=== PATIENT | male | born 1970 | race Caucasian/White ===

== ENCOUNTER → 2017-06-14 | Outpatient (CLI) | payer MEDICAID, OTHER ==
[2017-06-14 12:17] LABS: BASO # 0.1 K/mm3 (0.0-0.2); BASO % 0.8 % (0.0-1.0); EOS # 0.2 K/mm3 (0.0-0.50); EOS % 2.6 % (0.0-3.0); LYMPH % 27.6 % (24.0-44.0); MEAN CORPUSCULAR HEMOGLOBIN 31.2 pg (27.0-33.0); MEAN CORPUSCULAR HGB CONC 34.9 g/dl (32.0-36.5); MEAN CORPUSCULAR VOLUME 89.6 fl (80.0-96.0); MONO # 0.3 K/mm3 (0.0-0.8); MONO % 4.6 % (0.0-5.0); NEUTROPHILS # 4.6 K/mm3 (1.8-7.7); NEUTROPHILS % 62.3 % (36.0-66.0); RED CELL DISTRIBUTION WIDTH 13.1 % (11.5-14.5); WHITE BLOOD COUNT 7.3 K/mm3 (4.0-10.0)
[2017-06-14 13:07] LABS: ALBUMIN 3.8 GM/DL (3.2-5.2); ALBUMIN/GLOBULIN RATIO 1.15 (1.00-1.93); ALKALINE PHOSPHATASE 110 U/L (45-117); ALT/SGPT 40 U/L (12-78); ANION GAP 7 MEQ/L (8-16); AST/SGOT 19 U/L (15-37); BILIRUBIN,TOTAL 0.5 MG/DL (0.2-1.0); BLOOD UREA NITROGEN 17 MG/DL (7-18); CALCIUM LEVEL 8.8 MG/DL (8.5-10.1); CARBON DIOXIDE LEVEL 31 MEQ/L (21-32); CHLORIDE LEVEL 104 MEQ/L (98-107); CHOLESTEROL LEVEL 173 MG/DL (<200); CREATININE FOR GFR 1.26 MG/DL (0.70-1.30); GLOMERULAR FILTRATION RATE > 60.0 (>60); GLUCOSE, FASTING 98 MG/DL (70-105); POTASSIUM SERUM 3.9 MEQ/L (3.5-5.1); SODIUM LEVEL 142 MEQ/L (136-145); TOTAL PROTEIN 7.1 GM/DL (6.4-8.2); TRIGLYCERIDES LEVEL 327 MG/DL (<150)
--- NOTE | 2017-06-14 16:52 | ECGEPIP ---
Stationary ECG Study [facility] Test Date: 2017-06-14 Pat Name: COLTEN JEAN Department: Room: - Gender: M Capacity Planning Analyst: : 1970 Requested By: Renee Merritt Order Number: [id number] Reading MD: Bryce Oneill Measurements Intervals [place] Rate: 67 P: 42 NM: 204 QRS: -12 QRSD: 124 T: 0 QT: 377 QTc: 399 Interpretive Statements Normal sinus rhythm Leftward axis Consider prior IWMI No significant change when compared to prior tracing of 03/28/2015 Electronically Signed On 06-14-2017 16:52:26 EDT by Bryce Oneill
== END ==
LOC: M LAB 11:13
PROVIDERS: ATTEND Physician Assistant Medical
DX: I10 Essential (primary) hypertension (principal)

== ENCOUNTER → 2017-06-14 | Outpatient (CLI) | payer MEDICAID, OTHER | LOC: M LAB 11:18 | DX: Z13.9 Encounter for screening, unspecified (principal) ==

== ENCOUNTER → 2017-09-17 | Outpatient (CLI) | payer OTHER ==
[2017-09-17 17:09] LABS: ALBUMIN/GLOBULIN RATIO 1.18 (1.00-1.93); ALKALINE PHOSPHATASE 88 U/L (45-117); ALT/SGPT 39 U/L (12-78); ANION GAP 7 MEQ/L (8-16); AST/SGOT 27 U/L (7-37); BILIRUBIN,TOTAL 0.6 MG/DL (0.2-1.0); BLOOD UREA NITROGEN 17 MG/DL (7-18); CALCIUM LEVEL 9.1 MG/DL (8.5-10.1); CARBON DIOXIDE LEVEL 33 MEQ/L (21-32); CHLORIDE LEVEL 105 MEQ/L (98-107); CHOLESTEROL LEVEL 186 MG/DL (<200); CREATININE FOR GFR 1.21 MG/DL (0.70-1.30); GLOMERULAR FILTRATION RATE > 60.0 (>60); GLUCOSE, FASTING 108 MG/DL (70-105); POTASSIUM SERUM 4.4 MEQ/L (3.5-5.1); SODIUM LEVEL 145 MEQ/L (136-145); TOTAL PROTEIN 7.4 GM/DL (6.4-8.2); TRIGLYCERIDES LEVEL 205 MG/DL (<150)
== END ==
LOC: M WUC 10:59
PROVIDERS: ATTEND Physician Assistant Medical
DX: I10 Essential (primary) hypertension (principal)

== ENCOUNTER → 2019-04-17 | Outpatient (REF) | payer OTHER | LOC: M LAB REF 12:52 | PROVIDERS: ATTEND Nurse Practitioner Family | DX: J02.9 Acute pharyngitis, unspecified (principal) ==

== ENCOUNTER → 2019-06-30 | Outpatient (REF) ==
--- NOTE | 2019-07-01 05:38 | REP ---
Clinical: Left hand pain. Technique: AP, lateral, bilateral oblique views left hand a . Findings: The osseous structures and joint spaces are intact and essentially normal for age. No overt osteoarthritic degenerative changes are appreciated. There is no evidence for acute fracture or dislocation. Surrounding soft tissues are unremarkable. No subcutaneous emphysema or radiodense foreign body. Impression: Age-appropriate left hand series . Electronically Signed by Don Grajeda MD 07/01/2019 05:29 A
== END ==
LOC: M SMT 10:49
PROVIDERS: ATTEND Internal Medicine
DX: Z02.71 Encounter for disability determination (principal)

== ENCOUNTER → 2019-09-23 | Outpatient (REF) | payer OTHER ==
[2019-09-23 12:09] LABS: C REACTIVE PROTEIN QUANTITATIV 0.68 MG/DL (0.00-0.30); RHEUMATOID FACTOR QUANT < 10.0 IU/ML (<15.0); URIC ACID 5.7 MG/DL (3.5-7.2)
[2019-09-24 14:07] LABS: ANTINUCLEAR ANTIBODIES DIRECT Negative (Negative)
== END ==
LOC: M LABDRAW1 10:26
PROVIDERS: ATTEND Orthopaedic Surgery
DX: M25.539 Pain in unspecified wrist (principal)

== ENCOUNTER → 2020-11-13 | Outpatient (CLI) | payer OTHER ==
--- NOTE | 2020-11-14 15:42 | SLEEPCENT ---
NOCTURNAL POLYSOMNOGRAPHY DATE: 11/13/2020 ORDERED BY: MINE Lucia Nocturnal polysomnography was performed for evaluation of sleep physiology in this patient with excessive somnolence and nonrestorative sleep who has significant comorbidities of hypertension, obesity, and gastroesophageal reflux. 7 hours and 54 minutes of data were reviewed. There were 311 minutes of sleep identified. Sleep latency was prolonged at 88 minutes. REM latency was likewise prolonged at 242.5 minutes. Sleep architecture showed fragmentation and poor progression. There was only one REM cycle about 3:30 a.m., and the overall sleep efficiency was 69.2%. The patient's electrocardiogram showed what appeared to be a sinus rhythm at baseline with an average heart rate of 60 beats per minute; rate range 50 to 80. EEG showed normal waveforms for wake and sleep. There were 259 respiratory events identified of 10 seconds in duration or greater for an apnea-hypopnea index of 50. The events were not exclusive to sleep stage nor body posture. Arousals from respiratory events occurred 18.7 times per hour and oxygen desaturations were seen into the low 80s. There was also some activity noted in the limb leads, but limb movements arousals were few at 2.7 per hour. IMPRESSION: Severe obstructive sleep apnea syndrome (G47.33), apnea-hypopnea index 50. RECOMMENDATION: The patient should be encouraged to [facility]. In the interim, alcohol and sedative avoidance should be practiced and caution exercised during the operation of motor vehicles.
== END ==
LOC: M SLEEP 20:00
PROVIDERS: ATTEND Nurse Practitioner Family
DX: G47.33 Obstructive sleep apnea (adult) (pediatric) (principal); R06.83 Snoring

== ENCOUNTER 2020-11-28 12:08 | Emergency (ER) | payer OTHER ==
[~2020-11-28] VITALS: Ht 177.8 cm; Wt 137.7 kg
[2020-11-28] MEDS ORDERED: LOSA25TA14 PO (12:21)
[2020-11-28] MEDS ORDERED: SERTRALINE (12:22)
[2020-11-28] MEDS ORDERED: BUPR150T4 (12:22)
--- OUTSIDE RECORDS SUMMARY | 2020-11-28 12:41 | CCD ---
Author Author [facility] Organization [facility] Address Unknown Phone Unavailable Care Team Providers Care Sheep Shearer Name Role Phone Pleskach, Adelaida POWER SAW MECHANIC Unavailable Unavailable Pleskach, Adelaida POWER SAW MECHANIC Unavailable Unavailable Pleskach, Adelaida POWER SAW MECHANIC Unavailable Unavailable Pleskach, Adelaida POWER SAW MECHANIC Unavailable Unavailable Pleskach, Adelaida POWER SAW MECHANIC Unavailable Unavailable Pleskach, Adelaida POWER SAW MECHANIC Unavailable Unavailable Pleskach, Adelaida POWER SAW MECHANIC Unavailable Unavailable Pleskach, Adelaida POWER SAW MECHANIC Unavailable Unavailable Pleskach, Adelaida POWER SAW MECHANIC Unavailable Unavailable Pleskach, Adelaida POWER SAW MECHANIC Unavailable Unavailable Pleskach, Adelaida POWER SAW MECHANIC Unavailable Unavailable Pleskach, Adelaida POWER SAW MECHANIC Unavailable Unavailable Pleskach, Adelaida POWER SAW MECHANIC Unavailable Unavailable Pleskach, Adelaida POWER SAW MECHANIC Unavailable Unavailable Pleskach, Adelaida POWER SAW MECHANIC Unavailable Unavailable Pleskach, Adelaida POWER SAW MECHANIC Unavailable Unavailable Pleskach, Adelaida POWER SAW MECHANIC Unavailable Unavailable Pleskach, Adelaida POWER SAW MECHANIC Unavailable Unavailable Pleskach, Adelaida POWER SAW MECHANIC Unavailable Unavailable Pleskach, Adelaida POWER SAW MECHANIC Unavailable Unavailable Pleskach, Adelaida POWER SAW MECHANIC Unavailable Unavailable Pleskach, Adelaida POWER SAW MECHANIC Unavailable Unavailable Pleskach, Adelaida POWER SAW MECHANIC Unavailable Unavailable Pleskach, Adelaida POWER SAW MECHANIC Unavailable Unavailable Pleskach, Adelaida POWER SAW MECHANIC Unavailable Unavailable Pleskach, Adelaida POWER SAW MECHANIC Unavailable Unavailable Pleskach, Adelaida POWER SAW MECHANIC Unavailable Unavailable Pleskach, Adelaida POWER SAW MECHANIC Unavailable Unavailable Pleskach, Adelaida POWER SAW MECHANIC Unavailable Unavailable Pleskach, Adelaida POWER SAW MECHANIC Unavailable Unavailable Re-disclosure Warning The records that you are about to access may contain information from federally-assisted alcohol or drug abuse programs. If such information is present, then the following federally mandated warning applies: This information has been disclosed to you from records protected by federal confidentiality rules (42 CFR part 2). The federal rules prohibit you from making any further disclosure of this information unless further disclosure is expressly permitted by the written consent of the person to whom it pertains or as otherwise permitted by 42 CFR part 2. A general authorization for the release of medical or other information is NOT sufficient for this purpose. The Federal rules restrict any use of the information to criminally investigate or prosecute any alcohol or drug abuse patient.The records that you are about to access may contain highly sensitive health information, the redisclosure of which is protected by Article 27-F of the [facility] law. If you continue you may have access to information: Regarding HIV / AIDS; Provided by facilities licensed or operated by the [facility]; or Provided by the [facility] for People With Developmental Disabilities. If such information is present, then the following [facility] mandated warning applies: This information has been disclosed to you from confidential records which are protected by state law. State law prohibits you from making any further disclosure of this information without the specific written consent of the person to whom it pertains, or as otherwise permitted by law. Any unauthorized further disclosure in violation of state law may result in a fine or chcf sentence or both. A general authorization for the release of medical or other information is NOT sufficient authorization for further disc losure. Encounters Encounter Providers Location Date Indications Data Source(s ) Outpatient Attender: Adelaida Torres [facility] Main Office 07/06/2020 0 1:45:00 PM EDT [facility] Outpatient Attender: Adelaida Torres [facility] Main Office 10/27/2019 1 2:30:00 PM EST [facility] Immunizations Vaccine Date Status Description Data Source(s) New in 2012. IIV4 07/06/2020 02:14:00 PM EDT completed [facility] Insurance Providers Payer name Policy type / Coverage type Policy ID Covered alliance party ID Covered alliance party's relationship to schwab Policy Schwab Plan Information [facility] [id number] SP [id number] MVP MCDHMO [id number] SP [id number] 'S ADMINISTRATION [id number] SP [id number] [facility] O [id number] S [id number] [facility] Healthcare F pending SELF pendi ng [facility] Health Care Commercial [id number] Self [id number] [facility] MEDICAID HMO -O/P [id number] 18 [id number] [facility] HEALTH CARE [id number] SP [id number] [facility] HEALTH CARE [id number] SP [id number] MEDICAID [id number] SP [id number] [facility] Care Commercial Self Ghi Commercial Self Managed Care [place] P [id number] S [id number] Medicaid S [id number] RU [id number] SP [id number] MEDICAID M [id number] S [id number] [place] O [id number] S [id number] [facility]E O [id number] S [id number] AIG CS WORKER COMP [id number] SP [id number] [facility] P [id number] S [id number] [facility] P UNAVAILABLE S UNAVAILABLE [id number] Social History Code Duration Value Status Description Data Source(s ) Smoking 07/06/2020 12:00:00 AM EDT Patient has never smoked co mpleted Patient has never smoked [facility] Vital Signs ID Date Data Source UNK Name Value Range Interpretation Code Description Data Source(s) Body mass index (BMI) [Ratio] 41.2 kg/m2 41.2 k g/m2 [facility] [place] body weight 166 [lb_av] 166 [lb_av] DYLANEN T ([facility] Oxygen saturation in Arterial blood by Pulse oximetry 98 % 98 % [facility] Body weight 287.19 [lb_av] 287.19 [lb_av] DYLANEN T ([facility] Body height 70 [in_i] 70 [in_i] [facility] 5'10" Respiratory rate 12 /min 12 /min [facility] ( [facility] Body temperature 97.5 [degF] 97.5 [degF] [facility] Heart rate 60 /min 60 /min [facility] Diastolic blood pressure 69 mm[Hg] 69 mm[Hg] [facility] Systolic blood pressure 120 mm[Hg] 120 mm[Hg] M EDENT ([facility] Body mass index (BMI) [Ratio] 39.5 kg/m2 39.5 k g/m2 [facility] [place] body weight 166 [lb_av] 166 [lb_av] MEDEN T ([facility] Oxygen saturation in Arterial blood by Pulse oximetry 94 % 94 % [facility] Body weight 275.38 [lb_av] 275.38 [lb_av] MEDEN T ([facility] Body height 70 [in_i] 70 [in_i] [facility] 5'10" Respiratory rate 16 /min 16 /min [facility] ( [facility] Body temperature 98.6 [degF] 98.6 [degF] [facility] Heart rate 76 /min 76 /min [facility] Diastolic blood pressure 67 mm[Hg] 67 mm[Hg] [facility] Systolic blood pressure 112 mm[Hg] 112 mm[Hg] Zoya BERMEO ([facility]
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
--- OUTSIDE RECORDS SUMMARY | 2020-11-28 13:20 | CCD ---
Author Author [facility] Organization [facility] Address Unknown Phone Unavailable Care Team Providers Care Framing Specialist Name Role Phone Pleskach, Adelaida FURNACE COOLER Unavailable Unavailable Pleskach, Adelaida FURNACE COOLER Unavailable Unavailable Pleskach, Adelaida FURNACE COOLER Unavailable Unavailable Pleskach, Adelaida FURNACE COOLER Unavailable Unavailable Pleskach, Adelaida FURNACE COOLER Unavailable Unavailable Pleskach, Adelaida FURNACE COOLER Unavailable Unavailable Pleskach, Adelaida FURNACE COOLER Unavailable Unavailable Pleskach, Adelaida FURNACE COOLER Unavailable Unavailable Pleskach, Adelaida FURNACE COOLER Unavailable Unavailable Pleskach, Adelaida FURNACE COOLER Unavailable Unavailable Pleskach, Adelaida FURNACE COOLER Unavailable Unavailable Pleskach, Adelaida FURNACE COOLER Unavailable Unavailable Pleskach, Adelaida FURNACE COOLER Unavailable Unavailable Pleskach, Aedlaida FURNACE COOLER Unavailable Unavailable Pleskach, Adelaida FURNACE COOLER Unavailable Unavailable Pleskach, Adelaida FURNACE COOLER Unavailable Unavailable Pleskach, Adelaida FURNACE COOLER Unavailable Unavailable Pleskach, Adelaida FURNACE COOLER Unavailable Unavailable Pleskach, Adelaida FURNACE COOLER Unavailable Unavailable Pleskach, Adelaida FURNACE COOLER Unavailable Unavailable Pleskach, Adelaida FURNACE COOLER Unavailable Unavailable Pleskach, Adelaida FURNACE COOLER Unavailable Unavailable Pleskach, Adelaida FURNACE COOLER Unavailable Unavailable Pleskach, Adelaida FURNACE COOLER Unavailable Unavailable Pleskach, Adelaida FURNACE COOLER Unavailable Unavailable Pleskach, Adelaida FURNACE COOLER Unavailable Unavailable Pleskach, Adelaida FURNACE COOLER Unavailable Unavailable Pleskach, Adelaida FURNACE COOLER Unavailable Unavailable Pleskach, Adelaida FURNACE COOLER Unavailable Unavailable Pleskach, Adelaida FURNACE COOLER Unavailable Unavailable Re-disclosure Warning The records that [...] is protected by Article 27-F of the [facility] Public Health law. If you continue you may have access to information: Regarding HIV / AIDS; Provided by facilities licensed or operated by the [facility] Office of Mental Health; or Provided by the [facility] Office for People With Developmental Disabilities. If such information is present, then the following [facility] mandated warning applies: This information has been [...] law may result in a fine or long-term sentence or both. A general authorization for the release of medical or other information is NOT sufficient authorization for further disc losure. Encounters Encounter Providers Location Date Indications Data Source(s ) Outpatient Attender: Adelaida Torres [facility] Main Office 07/06/2020 0 1:45:00 PM EDT [facility] Outpatient Attender: Adelaida Torres [facility] Main Office 10/27/2019 1 2:30:00 PM EST [facility] Immunizations Vaccine Date Status Description Data Source(s) New in 2012. IIV4 07/06/2020 02:14:00 PM EDT completed [facility] Insurance Providers Payer name Policy type / Coverage type Policy ID Covered libertarian ID Covered libertarian's relationship to schwab Policy Schwab Plan Information [employer] [facility] NO FAULT [id number] SP [id number] 'S ADMINISTRATION [id number] SP [id number] [facility] [id number] SP [id number] MVP MCDHMO [id number] SP [id number] [facility] O [id number] S [id number] [facility] Healthcare F pending SELF pendi ng [facility] Health Care Commercial [id number] Self [id number] MVP MEDICAID HMO -O/P [id number] 18 [id number] [facility] HEALTH CARE [id number] SP [id number] [facility] HEALTH CARE [id number] SP [id number] MEDICAID [id number] SP [id number] [place] Care Commercial Self Ghi Commercial Self Managed Care [place] P [id number] S [id number] Medicaid S [id number] S [id number] [place] [id number] SP [id number] MEDICAID M [id number] [place] O [id number] S [id number] [facility]/136E O [id number] S [id number] AIG CS WORKER COMP [id number] SP [id number] [facility] P [id number] S [id number] [facility] P UNAVAILABLE S UNAVAILABLE [id number] Social History Code Duration Value Status Description Data Source(s ) Smoking 07/06/2020 12:00:00 AM EDT Patient has never smoked co mpleted Patient has never smoked [facility] Vital Signs ID Date Data Source UNK Name Value Range Interpretation Code Description Data Source(s) Body mass index (BMI) [Ratio] 41.2 kg/m2 41.2 k g/m2 [facility] [place] body weight 166 [lb_av] 166 [lb_av] MEDEN T ([facility] Oxygen saturation in Arterial blood by Pulse oximetry 98 % 98 % [facility] Body weight 287.19 [lb_av] 287.19 [lb_av] MED[facility] T ([facility] [...] k g/m2 [facility] [place] body weight 166 [lb_av] 166 [lb_av] MEDEN [...] Diastolic blood pressure 67 mm[Hg] 67 mm[Hg] MICHELL ([facility] Systolic blood pressure 112 mm[Hg] 112 mm[Hg] Zoya BERMEO ([facility]
[2020-11-28 13:31] LABS: BASO # 0.1 10^3/uL (0.0-0.2); BASO % 0.8 % (0.0-1.0); EOS # 0.2 10^3/uL (0.0-0.5); EOS % 2.7 % (0.0-3.0); HEMATOCRIT 45.3 % (42.0-52.0); HEMOGLOBIN 14.7 g/dl (13.5-17.5); LYMPH # 1.8 10^3/uL (1.5-5.0); LYMPH % 21.3 % (24.0-44.0); MEAN CORPUSCULAR HEMOGLOBIN 29.1 pg (27.0-33.0); MEAN CORPUSCULAR HGB CONC 32.5 g/dl (32.0-36.5); MEAN CORPUSCULAR VOLUME 89.5 fl (80.0-96.0); MONO # 0.6 10^3/uL (0.0-0.8); MONO % 7.2 % (2.0-8.0); NEUTROPHILS # 5.6 10^3/uL (1.5-8.5); NEUTROPHILS % 67.8 % (36.0-66.0); PLATELET COUNT, AUTOMATED 282 10^3/uL (150-450); RED BLOOD COUNT 5.06 10^6/uL (4.30-6.10); WHITE BLOOD COUNT 8.3 10^3/uL (4.0-10.0)
[2020-11-28] MEDS ORDERED: ISOVUE-370 76% 100ML VIAL As Ordered ONE (13:37)
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
[2020-11-28 14:05] LABS: ALBUMIN 4.5 GM/DL (3.2-5.2); ALT/SGPT 37 U/L (12-78); BILIRUBIN,TOTAL 0.4 MG/DL (0.2-1.0); BLOOD UREA NITROGEN 18 MG/DL (7-18); CALCIUM LEVEL 9.2 MG/DL (8.5-10.1); CARBON DIOXIDE LEVEL 28 MEQ/L (21-32); CHLORIDE LEVEL 107 MEQ/L (98-107); CREATININE FOR GFR 1.08 MG/DL (0.70-1.30); GLOMERULAR FILTRATION RATE > 60.0 (>56); GLUCOSE, FASTING 101 MG/DL (70-100); MAGNESIUM LEVEL 2.3 MG/DL (1.8-2.4); POTASSIUM SERUM 4.1 MEQ/L (3.5-5.1); SODIUM LEVEL 142 MEQ/L (136-145); TOTAL PROTEIN 7.6 GM/DL (6.4-8.2); TROPONIN I < 0.02 NG/ML (< 0.10)
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
[2020-11-28] MEDS ORDERED: LIDOCAINE 1% SDV 30ML VIAL SC ONE (15:30)
[2020-11-28] MEDS ORDERED: LIDOCAINE 1% MDV 20ML VIAL As Ordered ONE (15:31)
[2020-11-28] MEDS ORDERED: LIDO5DIS41 TD (15:53)
[2020-11-28] MEDS ORDERED: NEOSPORIN TOP OINT 15GM TOP ONE (16:00)
[2020-11-28] MEDS ORDERED: LIDOCAINE 5% (LIDODERM) PATCH TD ONE (16:00)
[2020-11-28 16:10] VITALS: BP 181/89
--- NOTE | 2020-11-28 16:10 | ECGEPIP ---
[facility] - ED Test Date: 2020-11-28 Pat Name: COLTEN JEAN Department: Room: - Gender: Male Transit Specialist: GIO : 1970 Requested By: TANIA Ochoa Order Number: [id number] Reading MD: Billy Morelos Measurements Intervals [place] Rate: 66 P: 46 WV: 192 QRS: -33 QRSD: 100 T: 3 QT: 398 QTc: 417 Interpretive Statements Normal sinus rhythm Left axis deviation Delayed anterior R wave progression Consider prior IWMI Similar to tracing done 06-14-17 Electronically Signed on 11-28-2020 16:10:33 EST by Billy Morelos
--- NOTE | 2020-11-28 20:08 | ED PDOC ---
Post-Departure Follow-Up ct chest faxed to shyam forman for fu Nena Rocha MD Nov 28, 2020 20:08
[2020-11-28] MEDS ORDERED: **NOTE PATIENT COMMENT** MISC XX SCH (21:00)
== END 2020-11-28 16:15 | disposition home or self-care (01) ==
LOC: M ED 12:08
DX: S01.81XA Laceration without foreign body of other part of head, initial encounter (principal); S20.212A Contusion of left front wall of thorax, initial encounter; M25.562 Pain in left knee; V49.40XA Driver injured in collision with unspecified motor vehicles in traffic accident, initial encounter; R91.8 Other nonspecific abnormal finding of lung field; I10 Essential (primary) hypertension; M47.812 Spondylosis without myelopathy or radiculopathy, cervical region
CPT/HCPCS: 12013; 70450; 71045; 71260; 72125; 73560; 80047; 80053; 83735; 84484; 85025; 93005; 99284; Q9967

== ENCOUNTER → 2021-01-19 | Outpatient (CLI) | payer OTHER ==
[~2021-01-19] MED LIST: BUPR150T12; LIDO5DIS41 TD; LOSA25TA14 PO; SERTRALINE
--- NOTE | 2021-01-24 17:00 | SLEEPCENT ---
DATE: 01/19/2021 ORDERED BY: Nati Ram Nocturnal polysomnography was performed for the titration of pressure therapy in this patient with obstructive sleep apnea syndrome, apnea-hypopnea index of 50. For testing, patient was fit with a ResMed Quattro full-face mask of medium size. There was 4 cm of water pressure applied to the circuit, and the lights were extinguished. There was 6 hours and 37 minutes of data reviewed. There was 321.5 minutes of sleep identified. Sleep latency was prolonged at 51 minutes. REM latency was normal at 96.5 minutes. Sleep architecture was good with two REM cycles. Overall sleep efficiency was 83%. The electrocardiogram showed a sinus rhythm with an average heart rate of 60 beats per minute. EEG showed normal waveforms for wake and sleep. Respiratory events were palliated with a CPAP pressure of 10. Limb activity was noted particularly early in the study. Limb movement arousal index on this occasion was 5.8. IMPRESSION: Obstructive sleep apnea syndrome (G47.33). RECOMMENDATION: Nightly use of pressure therapy, 10 cm of water.
== END ==
LOC: M SLEEP 20:00
PROVIDERS: ATTEND Nurse Practitioner Family
DX: G47.33 Obstructive sleep apnea (adult) (pediatric) (principal)

== ENCOUNTER 2021-02-04 12:21 | Emergency (ER) | payer OTHER ==
[~2021-02-04] VITALS: Ht 177.8 cm; Wt 129.6 kg
[2021-02-04 14:41] VITALS: O2SAT 86
--- NOTE | 2021-02-04 15:27 | REP ---
INDICATION: cough, chest discomfort x 1 week COMPARISON: 11/28/2020 TECHNIQUE: Portable AP view of the chest FINDINGS: Evaluation is somewhat limited due to underpenetration which accentuates the pulmonary vasculature and interstitial markings. The mediastinum and cardiac silhouette are stable and within normal limits for portable technique. The lung pa are without focal consolidation, effusion, or pneumothorax. Subtle interstitial disease cannot be excluded due to technique. Skeletal structures are intact. IMPRESSION: No focal consolidation or effusion. <Electronically signed by Don Grajeda > 02/04/21 1521
[2021-02-04] MEDS ORDERED: ACETAMINOPHEN 500 MG TAB PO ONE (15:45)
[2021-02-04 17:07] VITALS: BP 124/65
== END 2021-02-04 17:15 | disposition home or self-care (01) ==
LOC: M ED 12:21
DX: U07.1 COVID-19 (principal); I25.10 Atherosclerotic heart disease of native coronary artery without angina pectoris; I10 Essential (primary) hypertension; F41.1 Generalized anxiety disorder
CPT/HCPCS: 71045; 99283; M0243

== ENCOUNTER 2021-02-04 17:13 | Outpatient (CLI) | payer OTHER ==
[~2021-02-04] VITALS: Ht 177.8 cm; Wt 125.0 kg
--- NOTE | 2021-02-04 17:00 | CR.PDOC ---
General Date of Consultation: February 04, 2021 Referring Provider: IDANIA LEBLANC PA-C Attending Physician: RJ CHADWICK MD Consultation REASON FOR CONSULTATION/CHIEF COMPLAINT: Covid-19 infection for monoclonal antibodies infusion HISTORY OF PRESENT ILLNESS: 50 yo gentleman with a history of obesity, HTN, CAD and anxiety who presented reporting 7d of a dry cough, dry mouth, chills and mild diarrhea and noted to have a fever in the ED that resolved with tylenol who on testing was found to be covid-19 positive and CXR was clear and he was also clear to auscultation bilaterally and saturating well on room air including with ambulation, whom inte [facility] medicine is now consulted for monoclonal antibodies infusion for this high risk patient with obesity, HTN and CAD to reduce the risk of developing critical covid-19 associated illness. ALLERGIES: Please see below. HOME MEDICATIONS: Please see below. PAST MEDICAL HISTORY: obesity, HTN, CAD and anxiety PAST SURGICAL HISTORY: Bilateral carpal tunnel release L ulnar surgery FAMILY HISTORY: Noncontributory SOCIAL HISTORY: No alcohol or illicit drug use REVIEW OF SYSTEMS: as noted above. 10 point ROS was otherwise negative if not noted above. PHYSICAL EXAMINATION: VITAL SIGNS: Please see below. GENERAL APPEARANCE: Obese, NAD HEENT: NCAT, EOMI, PERRLA, anicteric RESPIRATORY: CTAB, no wheezing, crackles or rhonchi CARDIOVASCULAR: RRR, no m/r/g ABDOMEN: obese, soft, NTND EXTREMITIES: WWP, no LE edema NEUROLOGICAL: CN 2-12 intact, moving all extremities, normal gait PSYCHIATRIC: AOx3 LABORATORY DATA: covid-19 positive ASSESSMENT/PLAN: 50 yo gentleman with a history of obesity, HTN, CAD and anxiety who presented reporting 7d of a dry cough, dry mouth, chills and mild diarrhea and diagnosed with covid-19 infection now recommended for monoclonal antibody infusion with carisivimab and imdevimab. Plan: Covid-19 infection with mild associated illness at present: Saturating well on room air and has normal ambulatory saturation of 94%, also clear to auscultation with mild dry cough -orders placed for carisivimab and imdevimab infusion and the associated infusion reaction medications Will otherwise resume home meds as prescribed on discharge. Allergies Coded Allergies: No Known Allergies (Unverified , 11/28/20) Home Medications Scheduled Losartan Potassium (Losartan Potassium) 25 Mg Tablet, 1 TAB PO DAILY for 30 Days, #30 (Reported) Miscellaneous Medications Bupropion Hcl (Bupropion Xl) 150 Mg Tab.er.24h, (Reported) [Sertraline] , (Reported) RJ CHADWICK MD February 04, 2021 17:00
[~2021-02-04 17:13] MED LIST changes: +ALBUTEROL 90 MCG/ACT 8GM HFA INHALER INH PRN; +ALBUTEROL SULFATE 2.5 MG/0.5 ML INH NEB SOLN INH PRN; +EPINEPHrine INJ 1 MG/ML 1ML AMP IM PRN; +diphenhydrAMINE 50MG/ML VIAL (J1200) IV PRN; +methylPREDNISolone 125MG 2ML VIAL IV PRN
[2021-02-04 17:17] VITALS: BP 113/70
[2021-02-04] MEDS ORDERED: NS 1,000 ML IV SCH (17:30)
[2021-02-04] MEDS ORDERED: CASIRIVIMAB (REGN10933) 1,200 MG, IMDEVIMAB (REGN10987) 1,200 MG in NS 230 ML IV ONE (18:00)
[2021-02-04 18:06] VITALS: BP 121/69
[2021-02-04 18:21] VITALS: BP 113/68
[2021-02-04 18:40] VITALS: BP 116/69
[2021-02-04 19:15] VITALS: BP 117/77
[2021-02-04 20:10] VITALS: BP 122/77
== END 2021-02-04 20:15 | disposition home or self-care (01) ==
LOC: M OPCLI4 17:13 → M 4MAIN 17:13 → M OPCLI4 20:15
PROVIDERS: ATTEND Internal Medicine
DX: U07.1 COVID-19 (principal)

== ENCOUNTER 2021-03-20 07:45 | Emergency (ER) | payer OTHER, SELFPAY ==
[~2021-03-20] VITALS: Ht 177.8 cm; Wt 124.3 kg
[~2021-03-20 07:45] MED LIST changes: -ALBUTEROL 90 MCG/ACT 8GM HFA INHALER INH PRN; -ALBUTEROL SULFATE 2.5 MG/0.5 ML INH NEB SOLN INH PRN; -EPINEPHrine INJ 1 MG/ML 1ML AMP IM PRN; -diphenhydrAMINE 50MG/ML VIAL (J1200) IV PRN; -methylPREDNISolone 125MG 2ML VIAL IV PRN
[2021-03-20] MEDS ORDERED: LOSA100T50 PO (07:55)
[2021-03-20] MEDS ORDERED: ZOLO100T PO (07:55)
[2021-03-20] MEDS ORDERED: KETOROLAC 60MG 2ML VIAL IM ONE (08:20)
--- NOTE | 2021-03-20 08:54 | REP ---
INDICATION: fell off ladder COMPARISON: None. TECHNIQUE: AP, lateral, bilateral oblique and sunrise views. FINDINGS: The osseous structures and joint spaces are intact and essentially age-appropriate. There is no evidence for acute fracture or dislocation. However, lateral view demonstrates a moderate suprapatellar effusion concerning for occult injury. IMPRESSION: No acute fracture or dislocation identified. Moderate suprapatellar effusion concerning for underlying occult/soft tissue injury. <Electronically signed by Don Grajeda > 03/20/21 [id number]
[2021-03-20] MEDS ORDERED: NAPR-837 PO (09:39)
[2021-03-20 09:58] VITALS: BP 125/66
--- NOTE | 2021-03-20 14:01 | ED PDOC ---
Post-Departure Follow-Up [facility] faxed formal report of left knee film for fu Nena Rocha MD Mar 20, 2021 14:01
== END 2021-03-20 10:02 | disposition home or self-care (01) ==
LOC: M ED 07:45
DX: M25.462 Effusion, left knee (principal); W11.XXXA Fall on and from ladder, initial encounter; Y92.017 Garden or yard in single-family (private) house as the place of occurrence of the external cause; Y93.9 Activity, unspecified; Y99.9 Unspecified external cause status; I10 Essential (primary) hypertension; F41.9 Anxiety disorder, unspecified; Z79.899 Other long term (current) drug therapy
CPT/HCPCS: 73564; 96372; 99284; J1885

== ENCOUNTER → 2021-04-28 | Outpatient (CLI) | payer OTHER ==
[~2021-04-28] MED LIST changes: +LOSA100T50 PO; +NAPR-837 PO; +ZOLO100T PO
--- NOTE | 2021-04-29 09:07 | REP ---
INDICATION: LT KNEE TRAUMATIC INJURY ? INTERNAL DERANGEMENT. COMPARISON: Comparison left knee radiographs March 20, 2021.. TECHNIQUE: Axial, coronal, and sagittal imaging planes are utilized for left knee MRI study. T1, proton density, and T2 weighted images are acquired in the usual fashion. FINDINGS: There is a large joint effusion and suprapatellar plica is seen. No Richmond's cyst is appreciated. There is marrow edema in the medial and lateral posterior tibial plateau and posterior tibial metaphysis consistent with contusion. There is no aletha fracture line. There is also marrow edema in the mediolateral femoral condyles. Cortical and medullary bone signal intensity are otherwise normal. There is mild chondromalacia with some fissuring in the medial patellar facet articular cartilage and in the trochlear notch articular cartilage. There is no visible medial or lateral meniscal tear. There is however an acute complete tear of the anterior Q shift ligament. There is thickening and increased signal intensity in the medial collateral ligament consistent with strain of this structure. No evidence of lateral collateral ligament disruption is seen. Patellar and quadriceps tendons are intact. There is no evidence of Richmond's cyst. IMPRESSION: Acute tear ACL. Partial tear MCL. No meniscal disruption seen. Large joint effusion. Suprapatellar plica. Marrow contusion pattern as above. <Electronically signed by Arturo Ku > 04/29/21 [id number]
== END ==
LOC: M RAD 16:22
PROVIDERS: ATTEND Orthopaedic Surgery Adult Reconstructive Orthopaedic Surgery
DX: M23.92 Unspecified internal derangement of left knee (principal)

== ENCOUNTER → 2021-06-16 | Outpatient (CLI) | payer OTHER ==
[~2021-06-16] MED LIST changes: +ISOVUE-370 76% 100ML VIAL As Ordered ONE
--- NOTE | 2021-06-16 11:43 | REP ---
INDICATION: 6MO F/U-NODULE COMPARISON: 11/28/2020 TECHNIQUE: Standard helical technique after the intravenous administration of 100 cc Isovue 370 FINDINGS: The mediastinum and pulmonary david are unchanged. There is no mass or adenopathy. There are no pleural or pericardial effusions. There is no change in the imaged upper abdomen or imaged osseous structures. Evaluation of the lung pa shows a small peripheral calcification now seen associated with the right middle lobe nodule. The nodule is otherwise unchanged. There are no new abnormal nodules, masses, or opacities. IMPRESSION: The right middle lobe nodule seen on the prior exam now has a peripheral calcification and likely represents a benign entity, however, since the calcification is non central I would recommend an additional six-month follow-up to ensure stability. There is no revised Fleischner society criteria on the recommendation for follow-up of such a finding. <Electronically signed by Olivier Travis > 06/16/21 [id number]
== END ==
LOC: M RAD 10:21
PROVIDERS: ATTEND Nurse Practitioner Family
DX: R91.1 Solitary pulmonary nodule (principal)
CPT/HCPCS: 71260; Q9967

== ENCOUNTER 2021-06-29 13:27 | Outpatient (RCR) | payer OTHER ==
[~2021-06-29 13:27] MED LIST changes: -ISOVUE-370 76% 100ML VIAL As Ordered ONE
== END 2021-07-06 ==
LOC: M PT 13:27
PROVIDERS: ATTEND Orthopaedic Surgery Sports Medicine
DX: S83.512D Sprain of anterior cruciate ligament of left knee, subsequent encounter (principal); W18.30XD Fall on same level, unspecified, subsequent encounter; Y92.009 Unspecified place in unspecified non-institutional (private) residence as the place of occurrence of the external cause

== ENCOUNTER 2021-07-19 13:00 | Outpatient (RCR) | payer OTHER | END 2021-08-06 | LOC: M PT 13:00 | PROVIDERS: ATTEND Orthopaedic Surgery Sports Medicine | DX: Z47.89 Encounter for other orthopedic aftercare (principal); S83.512A Sprain of anterior cruciate ligament of left knee, initial encounter; X58.XXXA Exposure to other specified factors, initial encounter; Y92.9 Unspecified place or not applicable ==

== ENCOUNTER → 2021-08-04 | Outpatient (CLI) | payer OTHER | LOC: M PLALAB 14:38 | PROVIDERS: ATTEND Nurse Practitioner Family | DX: Z00.00 Encounter for general adult medical examination without abnormal findings (principal) ==

== ENCOUNTER → 2021-12-20 | Outpatient (CLI) | payer OTHER ==
[~2021-12-20] MED LIST changes: +ISOVUE-370 76% 100ML VIAL As Ordered ONE; +LOSA100T45 PO; -LOSA100T50 PO; +LOSA25TA13 PO; -LOSA25TA14 PO
== END ==
LOC: M RAD 13:05
PROVIDERS: ATTEND Nurse Practitioner Family
DX: R91.1 Solitary pulmonary nodule (principal)
CPT/HCPCS: 71260; Q9967

== ENCOUNTER → 2022-11-02 | Outpatient (CLI) | payer OTHER ==
[~2022-11-02] MED LIST changes: -ISOVUE-370 76% 100ML VIAL As Ordered ONE
[2022-11-02 17:19] LABS: ALKALINE PHOSPHATASE 88 U/L (46-116); ALT/SGPT 17 U/L (7.0-40); AST/SGOT 22 U/L (<34); BILIRUBIN,TOTAL 0.9 MG/DL (0.3-1.2); BLOOD UREA NITROGEN 16 MG/DL (9-23); CALCIUM LEVEL 9.2 MG/DL (8.5-10.1); CARBON DIOXIDE LEVEL 30 MMOL/L (20-31); CHLORIDE LEVEL 105 MMOL/L (98-107); CHOLESTEROL LEVEL 162 MG/DL (<200); CHOLESTEROL RISK RATIO 4.34 (<5); CREATININE FOR GFR 1.05 MG/DL (0.70-1.30); GLOMERULAR FILTRATION RATE > 60.0 (>56); GLUCOSE, FASTING 78 MG/DL (60-100); HDL CHOLESTEROL 37.3 MG/DL (>40); LDL CHOLESTEROL 109.9 MG/DL (<100); NON-HDL-C 125 MG/DL; POTASSIUM SERUM 4.3 MMOL/L (3.5-5.1); SODIUM LEVEL 142 MMOL/L (136-145); TOTAL PROTEIN 6.6 G/DL (5.7-8.2); TRIGLYCERIDES LEVEL 74 MG/DL (<150)
== END ==
LOC: M LAB 16:11
PROVIDERS: ATTEND Nurse Practitioner Family
DX: I10 Essential (primary) hypertension (principal)

== ENCOUNTER → 2023-10-08 | Outpatient (CLI) | payer OTHER ==
[~2023-10-08] MED LIST changes: -LOSA100T45 PO; +LOSA100T46 PO
[2023-10-08 16:41] LABS: BASO # 0.1 10^3/uL (0.0-0.2); BASO % 0.5 % (0.0-1.0); EOS # 0.3 10^3/uL (0.0-0.5); EOS % 2.8 % (0.0-3.0); HEMATOCRIT 41.9 % (42.0-52.0); HEMOGLOBIN 13.9 g/dl (13.5-17.5); LYMPH % 17.8 % (24.0-44.0); MEAN CORPUSCULAR HGB CONC 33.2 g/dl (32.0-36.5); MEAN CORPUSCULAR VOLUME 90.5 fl (80.0-96.0); MONO # 0.7 10^3/uL (0.0-0.8); MONO % 6.1 % (2.0-8.0); NEUTROPHILS # 8.1 10^3/uL (1.5-8.5); NEUTROPHILS % 72.5 % (36.0-66.0); PLATELET COUNT, AUTOMATED 247 10^3/uL (150-450); RED BLOOD COUNT 4.63 10^6/uL (4.30-6.10); WHITE BLOOD COUNT 11.2 10^3/uL (4.0-10.0)
[2023-10-08 17:01] LABS: ALBUMIN 3.9 G/DL (3.2-5.2); ALKALINE PHOSPHATASE 83 U/L (46-116); ALT/SGPT 21 U/L (7.0-40); AST/SGOT 21 U/L (<34); BILIRUBIN,TOTAL 0.8 MG/DL (0.3-1.2); BLOOD UREA NITROGEN 18 MG/DL (9-23); CALCIUM LEVEL 8.9 MG/DL (8.5-10.1); CARBON DIOXIDE LEVEL 30 MMOL/L (20-31); CHLORIDE LEVEL 108 MMOL/L (98-107); CREATININE FOR GFR 1.05 MG/DL (0.70-1.30); GLOMERULAR FILTRATION RATE > 60.0 (>56); GLUCOSE, FASTING 86 MG/DL (60-100); SODIUM LEVEL 144 MMOL/L (136-145); TOTAL PROTEIN 6.7 G/DL (5.7-8.2)
== END ==
LOC: M LAB 16:12
PROVIDERS: ATTEND Nurse Practitioner Family
DX: Z01.818 Encounter for other preprocedural examination (principal)

== ENCOUNTER → 2024-07-28 | Outpatient (CLI) | payer OTHER | LOC: M RAD 07:45 | PROVIDERS: ATTEND Internal Medicine Cardiovascular Disease | DX: I77.810 Thoracic aortic ectasia (principal) ==